=== PATIENT | female | born 1980 | race Caucasian/White ===

== ENCOUNTER 2019-11-13 19:41 | Emergency (ER) | payer BC ==
[~2019-11-13] VITALS: Ht 162.6 cm; Wt 74.4 kg
[2019-11-13 20:19] LABS: microscopic required? NO
[2019-11-13 20:25] LABS: urine erythrocyte NEGATIVE (NEGATIVE)
[2019-11-13 20:33] LABS: BASOPHIL % 0.5 % (0-2); PLATELET COUNT 365 x10^3mcL (130-400); RED CELL DISTRIBUTION WIDTH 13.2 % (11.5-14.5)
[2019-11-13 20:40] LABS: CALCIUM 9.3 mg/dL (8.5-10.1); CARBON DIOXIDE 29.4 mmol/L (21-32); CHLORIDE SERUM 102 mmol/L (98-107); CREATININE SERUM 0.9 mg/dL (0.6-1.0); GFR1 > 60 mL/min; GLUCOSE SERUM 94 mg/dL (74-106); POTASSIUM SERUM 3.9 mmol/L (3.5-5.1); SODIUM SERUM 140 mmol/L (136-145)
[2019-11-13 20:45] LABS: ALBUMIN 4.1 g/dL (3.4-5.0); ALKALINE PHOSPHATASE 78 U/L (46-116); ALT/SGPT 23 U/L (14-59); AST/SGOT 10 U/L (15-37); BILIRUBIN TOTAL 0.21 mg/dL (0.20-1.00); TOTAL PROTEIN, SERUM 7.6 g/dL (6.4-8.2)
[2019-11-13] MEDS ORDERED: LEVAQUIN750 MG PO (23:26)
[2019-11-13] MEDS ORDERED: PYRIDIUM200 M1 PO (23:26)
[2019-11-14 00:53] VITALS: BP 141/96
== END 2019-11-14 00:53 | disposition left against medical advice (07) ==
LOC: ED 19:41 → MU 22:35 → ED 22:35
PROVIDERS: Emergency Medicine
DX: N39.0 Urinary tract infection, site not specified (principal); Z88.0 Allergy status to penicillin; Z16.12 Extended spectrum beta lactamase (ESBL) resistance
CPT/HCPCS: G0378; J2185; Q0092